=== PATIENT | male | born 1940 | race Caucasian/White ===

== ENCOUNTER 2017-02-08 08:06 | Day surgery (SDC) | payer OTHER, BC ==
[2017-02-07 14:28] VITALS: BMI 22.1
[2017-02-08] MEDS ORDERED: MIDAZOLAM HCL 2 MG/2 ML SINGLE DOSE VIAL ONE (10:17)
[2017-02-08] MEDS ORDERED: PROPOFOL 20 ML ONE ×2 (10:17)
[2017-02-08] MEDS ORDERED: ceFAZolin SODIUM 1 GM VIAL IVPB ONE (10:42)
[2017-02-08] MEDS ORDERED: GENTAMICIN SO4 80 MG/2 ML VIAL IVPB ONE (10:50)
[2017-02-08] MEDS ORDERED: oxyCODONE HCL 5 MG TABLET PO PRN (11:03)
[2017-02-08] MEDS ORDERED: ACETAMINOPHEN 325 MG TABLET (FP) PO PRN ×2 (11:03→12:14)
[2017-02-08] MEDS ORDERED: ONDANSETRON 4 MG/2 ML VIAL IVPUSH PRN (11:03)
[2017-02-08] MEDS ORDERED: LACTATED RINGERS SOLUTION 1,000 ML IV SCH (11:15)
[2017-02-08] MEDS ORDERED: LIDOCAINE HCL/PF 2% SDV 5ML VIAL ONE (11:27)
[2017-02-08] MEDS ORDERED: ceFAZolin SODIUM 1 GM VIAL ONE (11:27)
[2017-02-08] MEDS ORDERED: GENTAMICIN SO4 80 MG/2 ML VIAL ONE (11:27)
--- NOTE | 2017-02-08 11:53 | OP ---
Operative Note - Note: Operative Date: 02/08/17 Pre-Operative Diagnosis: persistent micoscopic hematuria, cellular atypia, bph with luth, positive fish test Operation: cystoscopy, b/l retrograde pylegams, b/l ureteroscopies, right renal pelvic bx, right renal pelvic washing, r jj stent l renal pelvic washings, left jj stent Post-Operative Diagnosis: Same as Pre-op (high median lobe bp, grade 3 trabeculated bladder) Surgeon: Pb Rich Anesthesia: General Specimens Removed: right renal pelvic biopsy, r renal pelvic washing, l renal pelvic washings, cytology of bladder Drains & Tubes with Location: 2 x 24 cm 7 cm jj stents Drains, Volume Out (mls): 0 Blood Volume Replaced (mls): 0 Fluid Volume Replaced (mls): 0 Operative Report Dictated: Yes
[2017-02-08] MEDS ORDERED: TAMSULOSIN HCL 0.4 MG CAP.ER.24H (FP) PO ONE (12:30)
[2017-02-08 13:05] VITALS: TEMP 97.5
--- NOTE | 2017-02-08 13:52 | OP ---
DATE OF OPERATION: 02/08/2017 SURGEON: Pb Rich MD PREOPERATIVE DIAGNOSIS: Prostatism, persistent microscopic hematuria, bilateral mild hydronephrosis. POSTOPERATIVE DIAGNOSIS: Obstructing prostate gland, grade 3 trabeculated bladder, mild bilateral hydronephrosis, right renal pyelitis. OPERATIVE PROCEDURE: Cystourethroscopy, bilateral retrograde pyelograms, bilateral ureteroscopies, right renal pelvis biopsy and right renal pelvic washing, left renal pelvic washing, and placement of bilateral JJ stents. ANESTHESIA: General. DESCRIPTION OF PROCEDURE: Under above stated anesthesia, patient was prepped and draped in the usual sterile manner. He was placed in the dorsal lithotomy position. External genitalize appeared normal. Meatus was adequate. Phallus is circumcised. Continuous flow 30-degree scope was introduced under direct vision. Anterior urethra was within normal limits. Prostatic urethra revealed a high median lobe with bilateral hypertrophy of the prostate. Bladder was entered, urine was collected for cytology. Approximately 100 mL of residual urine was drained. Inspection of the bladder revealed a grade 3 trabeculation throughout the bladder. No overt lesions or calculi were seen. Flexi-Tip catheter was placed in the right ureteral orifice, and 8 mL of contrast were injected. This revealed a hydronephrotic right kidney, and no filling defects were noted. The same thing was done on the left side, that revealed a slightly dilated left kidney with no filling defect. Glidewires were passed up the right and left renal unit. The cystoscope was removed. The semi-rigid ureteroscope was inserted. Ureteroscopy was performed in the usual fashion on the right side. Ureter appeared to be normal. The renal pelvic revealed areas of hemorrhage and an elevated plaque-like lesion found in the posterior aspect of the lower right renal pelvis. Using a biopsy forceps, this area was biopsied. Afterwards, it was cauterized for hemostasis. Normal saline was then injected into the renal pelvis and aspirated for washing. On the left side, ureteroscopy revealed a normal ureter as well as a normal renal pelvis. Normal saline was injected per ureteroscope, and washings from the left renal pelvis were performed. No lesions were seen on the left side. The ureteroscope was removed. Bilateral JJ stents were then placed in the right and left kidneys. They were 24 cm, 7 Liberian. X-rays confirmed good position of the stents. The bladder was emptied. The scope was removed. The patient tolerated the procedure well. He returned to the recovery room in good condition. Papito [id number]
[2017-02-08 15:39] VITALS: BP 168/70; PULSE 84
[2017-02-09] MEDS ORDERED: HYDROCHLOROTHIAZIDE 25 MG TABLET (FP) PO SCH (10:00)
[2017-02-09] MEDS ORDERED: DABIGATRAN ETEXILATE MESYLATE 150 MG CAPSULE PO SCH (10:00)
[2017-02-09] MEDS ORDERED: PATIENT'S OWN MEDICATION (NON-FORMULARY) (Lisinopril [Prinivil -] 40 MG) PO SCH (10:00)
[2017-02-09] MEDS ORDERED: METOPROLOL SUCCINATE 25 MG TAB.SR.24H (FP) PO SCH (10:00)
--- NOTE | 2017-02-11 14:23 | PATH ---
Surgical Pathology Report Patient Name: SAMARA KNIGHT [facility]. Rec. #: [id number] /Age/Gender: 1940 (Age: 76) / M Account: [id number] Location: [facility] SURGICAL Taken: 02/08/2017 Received: 02/08/2017 Reported: 02/11/2017 Physicians: Pb Rich M.D. Specimen(s) Received BX RIGHT RENAL PELVIS Clinical History Hematuria Final Diagnosis RENAL PELVIS, RIGHT, BIOPSY: FRAGMENT OF PREDOMINANTLY DENUDED UROTHELIAL MUCOSA WITH CHRONIC INFLAMMATION. NO MALIGNANCY IDENTIFIED IN THE EXAMINED MATERIAL. Electronically Signed John Sherman M.D. Gross Description Received fresh, labeled "right renal pelvis biopsy" is a christianson, irregular portion of soft tissue measuring less than 0.1 cm in greatest dimension. The specimen is submitted in toto in one cassette. 02/08/201702/08/2017
--- NOTE | 2017-02-12 15:28 | PATH ---
Cytology Non-Gynecological Report Patient Name: SAMARA KNIGHT [facility]. Rec. #: [id number] /Age/Gender: 1940 (Age: 76) / M Account: [id number] Location: [facility] SURGICAL Taken: 02/08/2017 Received: 02/08/2017 Reported: 02/12/2017 Physicians: Pb Rich M.D. Specimen(s) Received RIGHT RENAL PELVIC WASHING Clinical History Hematuria Final Diagnosis RIGHT RENAL PELVIS WASHINGS: SATISFACTORY FOR EVALUATION. NO MALIGNANT CELLS IDENTIFIED. REACTIVE APPEARING UROTHELIAL CELLS, SINGLE AND IN CLUSTERS. Comment: Also refer to [id number] for the surgical pathology results. Electronically Signed John Sherman M.D. Gross Description Received is 10 cc of clear fluid fresh. On cytofunnel slide is made.
--- NOTE | 2017-02-12 15:28 | PATH ---
Cytology Non-Gynecological Report Patient Name: SAMARA KNIGHT [facility]. Rec. #: [id number] /Age/Gender: 1940 (Age: 76) / M Account: [id number] Location: [facility] SURGICAL Taken: 02/08/2017 Received: 02/08/2017 Reported: 02/12/2017 Physicians: Pb Rich M.D. Specimen(s) Received BLADDER URINE Clinical History Hematuria Final Diagnosis BLADDER URINE: SATISFACTORY FOR EVALUATION. NO MALIGNANT CELLS IDENTIFIED. SCATTERED REACTIVE UROTHELIAL CELLS. Electronically Signed John Sherman M.D. Gross Description Received is 50 cc of yellow fluid fresh. One cytofunnel slide and one cell block are made.
--- NOTE | 2017-02-12 15:29 | PATH ---
Cytology Non-Gynecological Report Patient Name: SAMARA KNIGHT [facility]. Rec. #: [id number] /Age/Gender: 1940 (Age: 76) / M Account: [id number] Location: [facility] SURGICAL Taken: 02/08/2017 Received: 02/08/2017 Reported: 02/12/2017 Physicians: Pb Rich M.D. Specimen(s) Received LEFT RENAL PELVIS WASHING Clinical History Hematuria Final Diagnosis LEFT RENAL PELVIS WASHING: SATISFACTORY FOR EVALUATION. MARKEDLY ATYPICAL UROTHELIAL CELLS PRESENT, SINGLE AND IN CLUSTERS. NUMEROUS RED BLOOD CELLS. Electronically Signed John Sherman M.D. Gross Description Received is 10 cc od bloody fluid fresh. One cytofunnel slide and one cell block are made.
== END 2017-02-08 14:15 | disposition home or self-care (01) ==
LOC: JASU-SURG 08:06
PROVIDERS: ATTEND Urology
PROC: 0TB38ZX Excision of Right Kidney Pelvis, Via Natural or Artificial Opening Endoscopic, Diagnostic (ICD-10-PCS; principal; 2017-02-08 09:00)
PROC: 0T768DZ Dilation of Right Ureter with Intraluminal Device, Via Natural or Artificial Opening Endoscopic (ICD-10-PCS; 2017-02-08 09:00)
DX: N40.1 Benign prostatic hyperplasia with lower urinary tract symptoms (principal); N13.8 Other obstructive and reflux uropathy; N32.89 Other specified disorders of bladder; N12 Tubulo-interstitial nephritis, not specified as acute or chronic; N13.30 Unspecified hydronephrosis
CPT/HCPCS: 76000-TC; 87070; 87075; 87086; 87205; 88108; 88300-TC; 88305-TC; 94760

== ENCOUNTER 2020-05-04 08:33 | Day surgery (SDC) | payer OTHER, BC ==
[2020-05-03 11:13] VITALS: BMI 21.7
[2020-05-04 09:16] LABS: HEMATOCRIT 26.2 % (35.4-49); HEMOGLOBIN 8.2 GM/dL (11.7-16.9); MCH 25.2 pg (25.7-33.7); MCHC 31.4 g/dl (32.0-35.9); MEAN CELL VOLUME 80.3 fl (80-96); MEAN PLT VOLUME 7.5 fl (7.5-11.1); PLATELET COUNT 226 K/MM3 (134-434); RBC 3.26 M/mm3 (4.00-5.60); RDW 16.7 % (11.9-15.9); WHITE BLOOD COUNT 5.9 K/mm3 (4.0-10.0)
[2020-05-04] MEDS ORDERED: LACTATED RINGERS SOLUTION 1,000 ML IV SCH (11:15)
[2020-05-04] MEDS ORDERED: EPHEDRINE SULFATE/0.9% NACL/PF 50 MG/10 ML SYRINGE NR ONE (11:22)
[2020-05-04] MEDS ORDERED: PROPOFOL 20 ML ONE ×3 (11:23→12:00)
[2020-05-04] MEDS ORDERED: SUCCINYLCHOLINE CHLORIDE 200 MG/10 ML SYRINGE ONE (11:23)
[2020-05-04] MEDS ORDERED: ceFAZolin SODIUM 1 GM VIAL IVPB ONE (11:35)
--- NOTE | 2020-05-04 12:08 | CONS ---
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 He is status post mitomycin intravesical instillations for 6 weeks. He did undergo a cystoscopy in the office and was found to have a recurrent papillary lesion. He does have nocturia x2, frequency. He had 1 episode of gross hematuria. The patient is diabetic, hypertensive, and has history of atrial fibrillation. He has undergone bilateral inguinal hernia repairs as well as an angioplasty and a parathyroidectomy for hypercalcemia. He denies any tobacco, ethanol, or allergies. MEDICATIONS: He presently is on Flomax, Proscar, lisinopril, Crestor, metoprolol, and hydrochlorothiazide. PHYSICAL EXAMINATION: Abdomen: Soft. There is no CVA tenderness. Genitalia: Atraumatic. Meatus is adequate. His prostate is 2+, firm, nontender. Gastrointestinal: Cystoscopy revealed papillary urothelial neoplasm, low malignant potential. No invasion identified. No muscularis proprio was present. Extremities: Revealed full range of motion with no cyanosis, clubbing, or edema. IMPRESSION: Impression at present is recurrent bladder tumor. PLAN: Cystoscopy and TUR bladder tumor. This was explained to patient, and he agrees. Papito [id number]
[2020-05-04] MEDS ORDERED: ACETAMINOPHEN 325 MG TABLET (FP) PO PRN (12:10)
--- NOTE | 2020-05-04 13:29 | OP ---
Operative Note - Note: Operative Date: 05/04/20 Pre-Operative Diagnosis: REC. TCC OF BLADDER, BLADDER NECK CONTRACTION,OBSTRUCTING PROSTATE. Operation: CYSTO, TURBT, TUVP AND TURP Findings: LEFT LAT. WALL BLADDER TUMOR AND OBSTRUCTED BLADDER NECK Post-Operative Diagnosis: Same as Pre-op Surgeon: Pb Rich Anesthesia: General Specimens Removed: BLADDER TUMOR TISSUE, PROSTATE CHIPS, URINE Estimated Blood Loss (mls): 50 Drains & Tubes with Location: 22F 20CC MARRERO Drains, Volume Out (mls): 0 Blood Volume Replaced (mls): 0 Fluid Volume Replaced (mls): 0 Operative Report Dictated: Yes
[2020-05-04] MEDS ORDERED: oxyCODONE HCL 5 MG TABLET PO PRN (13:35)
[2020-05-04 14:33] VITALS: TEMP 97
[2020-05-04 15:44] VITALS: BP 150/88; PULSE 86
--- NOTE | 2020-05-05 10:41 | OP ---
DATE OF OPERATION: 05/04/2020 PREOPERATIVE DIAGNOSIS: Recurrent bladder tumor. POSTOPERATIVE DIAGNOSIS: Recurrent bladder tumor with bladder neck contraction. OPERATIVE PROCEDURE: Cystourethroscopy, optical internal urethrotomy, transurethral resection and transurethral vaporization of prostate, transurethral resection of bladder tumor. ANESTHESIA: General. DESCRIPTION OF PROCEDURE: Under above-stated anesthesia patient was prepped and draped in the usual sterile manner. He was placed in the dorsal lithotomy position. Cystoscopy under direct vision revealed a normal anterior urethra. The prostatic urethra was contracted and the scope was unable to enter. Urethrotomy was performed at the 12 o'clock position of the bladder neck. No bleeding or extravasation was noted. The bladder had 250 mL of residual urine. This was sent for fresh cytology and C&S. The bladder revealed grade 3 trabeculation with multiple saccules. Ureteral orifices were within normal limits with efflux of clear urine. A papillary lesion was noted at the 3 o'clock position at the bladder neck dome. It measured approximately 4 cm in width. This was resected in the usual fashion. The base was cauterized. Tumor chips were evacuated with an proVITAL evacuator. Because of prostate hypertrophy and bladder neck contraction TUR of the prostate and bladder neck was performed. Vaporization was also performed to keep the bladder neck open. Prostate chips were evacuated and sent in a separate pathology container. Again, no active bleeding was noted. The scope was removed. A 22-Surinamese 30-mL [place] was inserted. This was connected to a leg bag. The patient tolerated the procedure well. He returned to the recovery room in good condition. Papito [id number]
--- NOTE | 2020-05-09 17:05 | PATH ---
Cytology Non-Gynecological Report Patient Name: SAMARA KNIGHT [facility]. Rec. #: [id number] /Age/Gender: 1940 (Age: 80) / M Account: [id number] Location: [facility] Taken: 05/04/2020 Received: 05/04/2020 Reported: 05/09/2020 Physicians: Pb Rich M.D. Specimen(s) Received URINE VOIDED Clinical History Bladder tumor Final Diagnosis URINE FOR CYTOLOGY: SATISFACTORY FOR EVALUATION. ATYPICAL UROTHELIAL CELLS PRESENT. RARE, SCATTERED ATYPICAL UROTHELIAL CELLS PRESENT, IN A BACKGROUND OF RED BLOOD CELLS AND ACUTE INFLAMMATION. SEE COMMENT. Comment: Rare atypical urothelial cells with high N/C ratio and hyperchromatic nuclei noted. Please also see concurrent pathology report [id number] for definitive diagnosis. Electronically Signed Tessy Westfall M.D. Gross Description Approximately 60cc of light pink fluid received fresh. One cytospin prepared
--- NOTE | 2020-05-10 16:36 | PATH ---
Surgical Pathology Report Patient Name: SAMARA KNIGHT [facility]. Rec. #: [id number] /Age/Gender: 1940 (Age: 80) / M Account: [id number] Location: [facility] SURGICAL Taken: 05/04/2020 Received: 05/05/2020 Reported: 05/10/2020 Physicians: Pb Rich M.D. Specimen(s) Received A: BLADDER TUMOR B: PROSTATE CHIPS Clinical History Bladder tumor Final Diagnosis A. BLADDER TUMOR, BIOPSY: INFILTRATING UROTHELIAL CARCINOMA. SEE COMMENT. NO DEFINITIVE MUSCULARIS PROPRIA INVASION IDENTIFIED. SEPARATE PORTIONS OF POLYPOID UROTHELIAL MUCOSA WITH ACUTE AND CHRONIC INFLAMMATION AND FOCAL SQUAMOUS METAPLASIA, CONSISTENT WITH POLYPOID/PAPILLARY CYSTITIS. Comment: Predominantly denuded epithelial mucosa showing scattered highly atypical urothelial tumor cells infiltrating fibrotic stroma. Immunohistochemical stained slides demonstrate tumor cells to be positive for AE1/AE3, CK7, CK20, and p63. In view of the prior clinical history, findings are consistent with recurrent infiltrating urothelial carcinoma. Muscularis propria is present and appears free of tumor. Immunohistochemistry stains performed and interpreted at [facility]. Positive and negative controls (internal if applicable) show appropriate results. Intradepartmental case reviewed with concordance of diagnosis on 05/09/2020. B. PROSTATE CHIPS, TRANSURETHRAL RESECTION OF THE PROSTATE: BENIGN PROSTATIC TISSUE WITH STROMAL HYPERPLASIA, ACUTE AND CHRONIC INFLAMMATION, AND FOCAL UROTHELIUM LINED MUCOSA WITH REACTIVE CHANGE. NEGATIVE FOR CARCINOMA. Electronically Signed Tessy Westfall M.D. Addendum Reported: 05/11/2020 Addendum Diagnosis This case was discussed with Dr. Deluca from Dr. Rich's office. Dr. Rich's office confirmed receipt of the faxed report. Tessy Westfall M.D. Gross Description A. Received in formalin labeled "bladder tumor" are 4 christianson soft tissue fragments ranging from 0.5-1.4 cm in greatest dimension. The specimens are submitted in toto in one cassette. B. Received in formalin labeled "prostate chips," is a 1 g, 2.0 x 1.4 x 0.3 cm aggregate of multiple christianson, irregular, firm to rubbery portions of tissue, consistent with prostate chips. The specimen is entirely submitted in 2 cassettes. DL/05/05/2020/05/05/2020
== END 2020-05-04 15:25 | disposition home or self-care (01) ==
LOC: JASU-SURG 08:33
PROVIDERS: ATTEND Urology
PROC: 0TND8ZZ Release Urethra, Via Natural or Artificial Opening Endoscopic (ICD-10-PCS; 2020-05-04)
PROC: 0TBC8ZZ Excision of Bladder Neck, Via Natural or Artificial Opening Endoscopic (ICD-10-PCS; principal; 2020-05-04 11:00)
PROC: 0VT08ZZ Resection of Prostate, Via Natural or Artificial Opening Endoscopic (ICD-10-PCS; 2020-05-04 11:00)
DX: C67.1 Malignant neoplasm of dome of bladder (principal); N40.1 Benign prostatic hyperplasia with lower urinary tract symptoms; N13.8 Other obstructive and reflux uropathy
CPT/HCPCS: 36415; 85027; 86850; 86900; 86901; 87086; 88108; 88305-TC; 88341-TC; 88342-TC; 94760

== ENCOUNTER 2020-11-09 04:38 | Day surgery (SDC) | payer OTHER, BC ==
[2020-11-03 14:55] VITALS: BMI 20.9
[2020-11-09 13:06] VITALS: TEMP 96.2
[2020-11-09 13:26] VITALS: BP 143/80; PULSE 96
== END 2020-11-09 13:27 | disposition home or self-care (01) ==
LOC: JRADIR 04:38
PROVIDERS: ATTEND Urology
PROC: 0T9100Z Drainage of Left Kidney with Drainage Device, Open Approach (ICD-10-PCS; principal; 2020-11-09)
PROC: 0T143JD Bypass Left Kidney Pelvis to Cutaneous with Synthetic Substitute, Percutaneous Approach (ICD-10-PCS; 2020-11-09)
PROC: BT42ZZZ Ultrasonography of Left Kidney (ICD-10-PCS; 2020-11-09)
DX: N13.39 Other hydronephrosis (principal)
CPT/HCPCS: 50432; 76098-TC-FY; 76942-TC; 87086; 87899; C1729; C1769

== ENCOUNTER 2020-12-08 04:39 | Day surgery (SDC) | payer OTHER, BC ==
[2020-12-06 11:35] VITALS: BMI 20.9
[2020-12-08] MEDS ORDERED: MIDAZOLAM HCL 2 MG/2 ML SINGLE DOSE VIAL IVPUSH ONE ×2 (15:00→15:15)
[2020-12-08 15:52] VITALS: BP 177/109; PULSE 94; TEMP 97.8
== END 2020-12-08 16:10 | disposition home or self-care (01) ==
LOC: JRADIR 04:39
PROVIDERS: ATTEND Urology
PROC: 0T7D8DZ Dilation of Urethra with Intraluminal Device, Via Natural or Artificial Opening Endoscopic (ICD-10-PCS; principal; 2020-12-08)
PROC: BT12YZZ Fluoroscopy of Left Kidney using Other Contrast (ICD-10-PCS; 2020-12-08)
DX: N35.819 Other urethral stricture, male, unspecified site (principal); N13.8 Other obstructive and reflux uropathy; C67.9 Malignant neoplasm of bladder, unspecified
CPT/HCPCS: 50693